=== PATIENT | male | born 1935 | race Caucasian/White ===

== ENCOUNTER → 2017-05-06 | Outpatient (CLI) | payer MEDICARE, OTHER ==
[~2017-05-06] MED LIST: AMIO200T47 PO; APIX5TAB PO; ASPI-715 PO; ASPI-816 PO; ATOR10TA65 PO; ATOR20TA65 PO; AZIT-1 PO; AZIT-18 PO; BENZ200C15 PO; CEPH-13 PO; CLO75 PO; EZET1TAB53 PO; FINA5TAB64 PO; FINA5TAB67 PO; FLU45SYR17 IM; FLU60SYR30 IM ONLY; FURO-45 PO; GLY5 PO; INSU100I28 SQ; INSU100I35 SQ; INSU100I5 SUBQ; INSU100V26 IJ; LEVI SUBQ; LEVO100T95 PO; LEVO50TA86 PO; LEVO75TA73 PO; LIS10 PO; LISI-351 PO; LISI-362 PO; METF-420 PO; METO-231 PO; METO-257 PO; NEED-931 MC; NITR0.4T3 SL; OSE75 PO; PEN1DIS. MC; PRED20TA6 PO; SIMV-54 PO; SITA100T9 PO; SYRI-1525 SQ; TAMS0.4C70 PO; [UNRECOGNIZED DRUG - CODE] MC; [UNRECOGNIZED DRUG - REMARK]
[2017-05-06 11:35] LABS: PLATELET COUNT, AUTOMATED 171 K/uL (150-450)
== END ==
LOC: LAB 11:16
PROVIDERS: ATTEND Nurse Practitioner Family
DX: Z12.5 Encounter for screening for malignant neoplasm of prostate (principal); I12.9 Hypertensive chronic kidney disease with stage 1 through stage 4 chronic kidney disease, or unspecified chronic kidney disease; N18.3 Chronic kidney disease, stage 3 (moderate); E11.9 Type 2 diabetes mellitus without complications; E03.9 Hypothyroidism, unspecified; E78.00 Pure hypercholesterolemia, unspecified
CPT/HCPCS: 36415; 83036; 84443; 85025; G0103; 82040; 82247; 82310; 82374; 82435; 82465; 82565; 82947; 83718; 84075; 84132; 84153; 84155; 84295; 84450; 84460; 84478; 84520

== ENCOUNTER → 2017-08-27 | Outpatient (CLI) | payer MEDICARE, OTHER ==
[~2017-08-27] MED LIST changes: -ASPI-816 PO; +ASPI-870 PO; +METF-421 PO
== END ==
LOC: LAB 10:04
PROVIDERS: ATTEND Nurse Practitioner Family
DX: E03.9 Hypothyroidism, unspecified (principal); I12.9 Hypertensive chronic kidney disease with stage 1 through stage 4 chronic kidney disease, or unspecified chronic kidney disease; N18.3 Chronic kidney disease, stage 3 (moderate); E11.9 Type 2 diabetes mellitus without complications
CPT/HCPCS: 36415; 82040; 82247; 82310; 82374; 82435; 82565; 82947; 83036; 84075; 84132; 84155; 84295; 84443; 84450; 84460; 84520

== ENCOUNTER → 2017-09-30 | Outpatient (CLI) | payer MEDICARE, OTHER ==
[~2017-09-30] MED LIST changes: +METF-411 PO
== END ==
LOC: LAB 09:27
PROVIDERS: ATTEND Nurse Practitioner Family
DX: N18.3 Chronic kidney disease, stage 3 (moderate) (principal)
CPT/HCPCS: 36415; 82310; 82374; 82435; 82565; 82947; 84132; 84295; 84520

== ENCOUNTER → 2017-11-28 | Outpatient (CLI) | payer MEDICARE, OTHER ==
[~2017-11-28] MED LIST changes: -AMIO200T47 PO; +AMIO200T49 PO
[2017-11-28 09:22] LABS: PLATELET COUNT, AUTOMATED 176 K/uL (150-450)
== END ==
LOC: LAB 08:59
PROVIDERS: ATTEND Nurse Practitioner Family
DX: E11.9 Type 2 diabetes mellitus without complications (principal)
CPT/HCPCS: 36415; 82040; 82247; 82310; 82374; 82435; 82565; 82947; 83036; 84075; 84132; 84155; 84295; 84443; 84450; 84460; 84520; 85025

== ENCOUNTER → 2018-03-04 | Outpatient (CLI) | payer MEDICARE, OTHER ==
[~2018-03-04] MED LIST changes: +FLU180SY11 IM; +LOSA50TA74 PO; -METF-411 PO; -METF-421 PO; +METF-450 PO; +METF-452 PO
[2018-03-04 10:58] LABS: PLATELET COUNT, AUTOMATED 174 K/uL (150-450)
[2018-03-04 11:11] LABS: LDL CHOLESTEROL 55 mg/dl
--- NOTE | 2018-03-04 13:16 | RADIOLOGY IMAGING REPORT ---
FACILITY: [facility] PATIENT NAME: Emil Jensen : 1935 MR: [id number] V: [id number] EXAM DATE: ORDERING PHYSICIAN: MELONIE MCKNIGHT TECHNOLOGIST: Location: [facility] [place] Patient: Emil Jensen : 1935 Visit/Account:[id number] Date of Sevice: 03/04/2018 CHEST PA AND LAT INDICATION: chronic cough COMPARISON: 07/19/2015 FINDINGS: Heart size within normal limits. There is no focal infiltrate or lobar consolidation. There is mild pulmonary hyperexpansion. There is no pneumothorax or pleural effusion. IMPRESSION: 1. No acute cardiopulmonary process. Report Dictated By: Lio Dill at 03/04/2018 1:11 PM Report E-Signed By: Lio Dill at 03/04/2018 1:11 PM WSN:[email or web address]
== END ==
LOC: LAB 10:23
PROVIDERS: ATTEND Nurse Practitioner Family
DX: E11.65 Type 2 diabetes mellitus with hyperglycemia (principal); E03.9 Hypothyroidism, unspecified; N18.3 Chronic kidney disease, stage 3 (moderate); R05 Cough
CPT/HCPCS: 36415; 71046; 82040; 82247; 82310; 82374; 82435; 82465; 82565; 82947; 83036; 83718; 84075; 84132; 84155; 84295; 84443; 84450; 84460; 84478; 84520; 85025

== ENCOUNTER 2018-04-23 18:12 | Emergency (ER) | payer MEDICARE, OTHER ==
[~2018-04-23 18:12] MED LIST changes: -LOSA50TA74 PO; +LOSA50TA80 PO
--- NOTE | 2018-04-23 18:16 | ER Report ---
History and Physical Time Seen By MD: 18:16 HPI/ROS CHIEF COMPLAINT: Nosebleeds HISTORY OF PRESENT ILLNESS: 82-year-old male presents with 3 separate nosebleeds over the last 12 hours. The last one just prior to arrival. Patient notes his primary from the left nares. Patient has a history of hypertension. He's also on blood thinners. Although reviewing is listed medications. He is only on a baby aspirin. He previously was on Eliquis for A. fib. Tonight on his presentation. His blood pressure is 188/132. Patient notes no runny nose, rhinitis, sinus infection symptoms. Patient has a packing in his left nose on arrival with controlled bleeding. REVIEW OF SYSTEMS: Respiratory: No cough, no dyspnea. Cardiovascular: No chest pain, no palpitations. Gastrointestinal: No vomiting, no abdominal pain. Musculoskeletal: No back pain. Allergies: Uncoded Allergies: METALS (Adverse Reaction, Unknown, UNKNOWN, 12/22/13) Home Meds Active Scripts Metformin Hcl (METFORMIN HCL) 500 Mg Tablet, 1 TAB PO DAILY, #90 TAB 0 Refills Prov:MELONIE MCKNIGHT APRN-C 04/10/18 Losartan Potassium (LOSARTAN POTASSIUM) 50 Mg Tablet, 1 TAB PO DAILY, #90 TAB 0 Refills Prov:MELONIE MCKNIGHT APRN-C 03/27/18 Finasteride (FINASTERIDE) 5 Mg Tablet, 1 TAB PO DAILY, #90 TAB 0 Refills Prov:MELONIE MCKNIGHT APRNC 03/27/18 Atorvastatin Calcium (ATORVASTATIN CALCIUM) 20 Mg Tablet, 1 TAB PO DAILY, #90 TAB 3 Refills Prov:MELONIE MCKNIGHT APRNC 05/06/17 Metoprolol Tartrate (METOPROLOL TARTRATE) 100 Mg Tablet, 1 TAB PO BID, #180 TAB 3 Refills Prov:MELONIE MCKNIGHT APRNC 05/06/17 Levothyroxine Sodium (LEVOTHYROXINE SODIUM) 75 Mcg Tablet, 1 TAB PO QDAY, #90 TAB 3 Refills Prov:MELONIE MCKNIGHT APRNC 05/06/17 Tamsulosin Hcl (TAMSULOSIN HCL) 0.4 Mg Cap.er.24h, 1 CAP PO QHS, #90 CAP 3 R efills Prov:MELONIE MCKNIGHT APRN FUEL HOUSE ATTENDANT-C 05/06/17 Insulin Detemir 100 UN/ML PEN (Levemir Flextouch) 100 Unit/1 Ml Insuln.pen, 20- 24 UNIT SUBQ Q12H, #15 EACH 3 Refills 24 units every monring and 20 units every evening Prov:MELONIE MCKNIGHT APRN FUEL HOUSE ATTENDANT-C 02/26/17 Insulin Aspart 100 Un/Ml Pen (NOVOLOG FLEXPEN) 100 Unit/1 Ml Insuln.pen, 10 UNITS SQ TIDAC, #1 BOX 8 Refills Prov:MELONIE MCKNIGHT APRNP-C 02/26/17 Pen Needle, Diabetic, Safety (PEN NEEDLE) 1 Each Dis.needle, 1 EACH MC DAILY, #90 5 Refills Prov:MELONIE MCKNIGHT APRN FUEL HOUSE ATTENDANT-C 10/03/16 [place], Insulin Disposable (PEN NEEDLES) 1 Each Dis.needle, 1 EACH MC TID, #1 10 Refills injection of insulin 3X a day Prov:MELANY WYNN MD 09/08/14 Reported Medications Aspirin (Children's Aspirin) 81 Mg Tab.chew, 1 TAB PO DAILY, #100 TAB 4 Refills 05/24/14 Past Medical/Surgical History Past Medical History Neurologic: Reports hx of: other neurologic history (Has resting tremor - evaluated by neurology and diagnosed as essential tremor) Cardiovascular: Reports hx of: atrial fibrillation (after bypass surgery and placed on amiodarone and eliquis for short time.) coronary artery disease (? [place] and had coronary stent in 2010 in [place]. ) hyperlipidemia hypertension Respiratory: Reports hx of: other respiratory history (peak flow 400 in 2011. ) Genitourinary: Reports hx of: benign prostatic hypertro (Tx per Dr. Kitchen since 2001. outlet obst. several yrs ago. ) chronic renal failure (creat of 1.4 in 2009. Hx hyperkalemia. ) Musculoskeletal: Reports hx of: other musculoskeletal hx (Has left lower leg prosthesis for BKA) Endocrine: Reports hx of: diabetes type 2 hypothyroidism Hematology/oncology: Reports hx of: anemia Events: REPORTS HX OF: Other events (abstracted 05/30. Annual in 04/28. ) Past Surgical History Left below the knee amputation Cardiovascular: Reports hx of: CABG surgery (06/2014. [address] Grey in [place]. ) Left below the knee amputation Reviewed Nurses Notes: Yes Old Medical Records Reviewed: Yes Hx Smoking: No Smoking Status: Former Smoker Constitutional Vital Sign - Last 24 Hours 04/23/18 04/23/18 04/23/18 04/23/18 18:12 18:17 18:18 18:26 Temp 97.7 Pulse ??? 83 Resp 16 B/P (MAP) 188/132 (150) 188/132 150/74 (99) Pulse Ox 92 O2 Delivery Room Air 04/23/18 04/23/18 04/23/18 04/23/18 18:27 18:30 18:42 18:45 Pulse 77 93 B/P (MAP) 140/97 (111) 135/64 (87) Pulse Ox 92 04/23/18 04/23/18 04/23/18 04/23/18 19:00 19:15 19:30 19:45 B/P (MAP) 125/79 (94) 107/68 (81) 92/67 (75) 113/58 (76) Physical Exam Vital signs stable, blood pressure grossly elevated, pulse ox normal, afebrile General Appearance: The patient is alert, has no immediate need for airway protection and no current signs of toxicity. No acute distress, skin warm, dry, pink HEENT: Pupils equal and round no injection. TMs normal, nasal passages with fresh clot in Kiesselbach's area in the left nares. There is no bleeding from the right Respiratory: Chest is non tender, lungs are clear to auscultation. Cardiac: Irregular regular rate and rhythm Gastrointestinal: Abdomen is soft and non tender, no masses, bowel sounds normal. Musculoskeletal: Neck: Neck is supple and non tender. No lymphadenopathy Extremities have full range of motion and are non tender. No edema Skin: No rashes or lesions. DIFFERENTIAL DIAGNOSIS: After history and physical exam differential diagnosis was considered forbleeding, epistaxis, excessive and a coagulation, hypertension Medical Decision Making ED Course/Re-evaluation ED Course Patient was admitted to an examination room. H&P was done. The differential diagnoses was considered. Patient's blood pressure was noted to be grossly elevated at 180/132. He was given clonidine 0.1 mg by mouth. His list of medications was reviewed. There is no room to increase his metoprolol or his losartan. Patient's left nares was packed with a cotton ball saturated with Afrin and lidocaine with epinephrine. Silver nitrate cautery was attempted. But it only aggravated of the clot and friability of the Kiesselbach's area. A rapid Rhino had to be placed to control the bleeding. It was infiltrated with lidocaine with epinephrine. He's advised to leave the packing in place for 3 days and then return to the ER on Saturday to have it removed. Decision to Disposition Date: Apr 23, 2018 Decision to Disposition Time: 18:41 Depart Departure Latest Vital Signs Vital Signs Date Time Temp Pulse Resp B/P (MAP) Pulse Ox O2 Delivery O2 Flow Rate FiO2 04/23/18 19:45 113/58 (76) 04/23/18 18:42 93 04/23/18 18:27 92 04/23/18 18:18 97.7 16 Room Air Impression: Primary Impression: Epistaxis Additional Impression: Hypertension Condition: Improved Disposition: HOME OR SELF-CARE Referrals: MELONIE MCKNIGHT APRN FUEL HOUSE ATTENDANT-C (PCP) Patient Instructions: Nosebleed (ED) Additional Instructions: Go to urgent care on Saturday to have your nasal packing removed, you may come to the emergency department if you are unable to be seen at urgent care Problem Qualifiers Additional Impression: Hypertension Hypertension type: essential hypertension Qualified Codes: I10 - Essential (primary) hypertension JUDSON FUENTES DO Apr 23, 2018 18:16
[2018-04-23] MEDS ORDERED: cloNIDine HCL 0.1 MG TAB PO ONE (18:25)
[2018-04-23] MEDS ORDERED: ENT KIT ONE (18:32)
[2018-04-23 19:45] VITALS: BP 113/58
== END 2018-04-23 19:50 | disposition home or self-care (01) ==
LOC: ER 18:32
DX: R04.0 Epistaxis (principal); I10 Essential (primary) hypertension
CPT/HCPCS: 30903; 99283; A9270

== ENCOUNTER 2018-04-26 06:20 | Emergency (ER) | payer MEDICARE, OTHER ==
[2018-04-26 06:30] VITALS: BP 137/91
--- NOTE | 2018-04-26 06:44 | ER Report ---
History and Physical Time Seen By MD: 06:22 Hx. of Stated Complaint: PATIENT STATES THAT AROUND 3 AM HIS NOSE STARTED BLEEDING AGAIN; PATIENT STATES THAT HE TOOK SOME MEDICATION TO STOP THE BLEEDING (FAYE BECERRIL DO) Time Seen By MD: 07:24 (CAITLYN KU DO) HPI/ROS CHIEF COMPLAINT: nosebleed HISTORY OF PRESENT ILLNESS: Pt was seen here on 04/23/2018 for a nose bleed after having 3 separate nosebleeds at home. Dr. Ibarra attempted to cauterize the left nares at sight of anterior bleeding but was unsuccessful. Pts nose was packed with rhino rocket and bleeding stopped. PT was to report to urgent care today to have the packing removed. Pt states that at 3am he started with bleeding from his left nares again. PT removed the rhinorocket himself and held pressure. PT took his blood pressure medication lopressor 100mg to help reduce his pressure and a possible cause of his bleeding. When bleeding did not stop immediately he took a second pill for a total of 200mg. Pt bleeding finallly stopped but he came her to the emergency room to have his nose checked. no active bleeding at this time. Pt is on baby asa. REVIEW OF SYSTEMS: Constitutional: No fever, no chills. Eyes: No discharge. ENT: No sore throat. + nose bleed Cardiovascular: No chest pain, no palpitations. Respiratory: No cough, no shortness of breath. Gastrointestinal: No abdominal pain, no vomiting. Genitourinary: No hematuria. Musculoskeletal: No back pain. Skin: No rashes. Neurological: No headache. (FAYE BECERRIL DO) HPI/ROS Please see 's note (CAITLYN KU DO) Allergies: Uncoded Allergies: METALS (Adverse Reaction, Unknown, UNKNOWN, 12/22/13) Home Meds Active Scripts Metformin Hcl (METFORMIN HCL) 500 Mg Tablet, 1 TAB PO DAILY, #90 TAB 0 Refills Prov:MELONIE MCKNIGHT APRN-C 04/10/18 Losartan Potassium (LOSARTAN POTASSIUM) 50 Mg Tablet, 1 TAB PO DAILY, #90 TAB 0 Refills Prov:MELONIE MCKNIGHT APRNP-C 03/27/18 Finasteride (FINASTERIDE) 5 Mg Tablet, 1 TAB PO DAILY, #90 TAB 0 Refills Prov:MELONIE MCKNIGHT DERIC ALFALFA DEHYDRATOR OPERATOR-C 03/27/18 Atorvastatin Calcium (ATORVASTATIN CALCIUM) 20 Mg Tablet, 1 TAB PO DAILY, #90 TAB 3 Refills Prov:TERESA MCKNIGHTWILLI ARAYAP-C 05/06/17 Metoprolol Tartrate (METOPROLOL TARTRATE) 100 Mg Tablet, 1 TAB PO BID, #180 TAB 3 Refills Prov:TERESA MCKNIGHTWILLI ARAYAP-C 05/06/17 Levothyroxine Sodium (LEVOTHYROXINE SODIUM) 75 Mcg Tablet, 1 TAB PO QDAY, #90 TAB 3 Refills Prov:JUAN LUISMELONIE ARAYAP-C 05/06/17 Tamsulosin Hcl (TAMSULOSIN HCL) 0.4 Mg Cap.er.24h, 1 CAP PO QHS, #90 CAP 3 Refills Prov:MELONIE MCKNIGHT APRNP-C 05/06/17 Insulin Detemir 100 UN/ML PEN (Levemir Flextouch) 100 Unit/1 Ml Insuln.pen, 20- 24 UNIT SUBQ Q12H, #15 EACH 3 Refills 24 units every monring and 20 units every evening Prov:MELONIE MCKNIGHT APRN-C 02/26/17 Insulin Aspart 100 Un/Ml Pen (NOVOLOG FLEXPEN) 100 Unit/1 Ml Insuln.pen, 10 UNITS SQ TIDAC, #1 BOX 8 Refills Prov:SHMUELGONZALOMELONIEWILLI ARAYAP-C 02/26/17 Pen Needle, Diabetic, Safety (PEN NEEDLE) 1 Each Dis.needle, 1 EACH MC DAILY, #90 5 Refills Prov:TABITHAMELONIE TAVERA APRN ALFALFA DEHYDRATOR OPERATOR-C 10/03/16 [place], Insulin Disposable (PEN NEEDLES) 1 Each Dis.needle, 1 EACH MC TID, #1 10 Refills injection of insulin 3X a day Prov:MELANY WYNN MD 09/08/14 Reported Medications Aspirin (Children's Aspirin) 81 Mg Tab.chew, 1 TAB PO DAILY, #100 TAB 4 Refills 05/24/14 Past Medical/Surgical History Pmhx: hyperlipid, htn, resting tremor, afib, Cad, Renal failure, BPH, hypothyroid Pshx: CABG (LAURORA,FAYE V DO) Reviewed Nurses Notes: Yes Old Medical Records Reviewed: Yes (FAYE BECERRIL DO) Hx Smoking: No Smoking Status: Former Smoker Hx Alcohol Use: No (FAYE BECERRIL DO) Constitutional Vital Sign - Last 24 Hours 04/26/18 04/26/18 04/26/18 04/26/18 06:24 06:24 06:30 06:50 Temp 97.5 Pulse 60 52 Resp 16 B/P (MAP) 106/91 (96) 106/91 137/91 (106) Pulse Ox 93 89 O2 Delivery Room Air Room Air (CAITLYN KU DO) Physical Exam General Appearance: The patient is alert, has no immediate need for airway protection and no signs of toxicity. Eyes: Pupils equal and round no pallor or injection, EOMI ENT: no pharyngeal erythema or exudates, Mucous membranes are moist, TM are nl b/l Respiratory: There are no retractions, lungs are clear to auscultation. Cardiovascular: Regular rate and rhythm. pulses are equal and symmetrical Neurological: Cranial nerves II-XII grossly intact, + resting tremor Skin: Warm and dry, no rashes. Extremities are nontender, nonswollen and have full range of motion. DIFFERENTIAL DIAGNOSIS: After history and physical exam differential diagnosis was considered for nose bleed, coagulopathy (FAYE BECERRIL DO) Physical Exam Please see Dr. Becerril's note (CAITLYN KU DO) Medical Decision Making ED Course/Re-evaluation ED Course Pt on arrival had a try tissue in his left nares with no active bleeding. Tissue was moistened with NSS and removed. No bleeding was noted. PT does have a larger blood vessel anterior septal wall which may have been the area of bleeding however no bleeding at this time. I discussed with the pt possible cauterizing of that blood vessel however that could lead to repeat bleeding and then packing. PT elected to be monitored and if no bleeding reoccurs then will d/c without intervention. However if bleeding restarts will attempt cauterization and/or packing. PT has not seen ENT in past, will give him a referaral # 04/26/2018 6:52:01 am S[address] out to Dr. Ku Decision to Disposition Date: Apr 26, 2018 Decision to Disposition Time: 07:04 (FAYE EBCERRIL DO) ED Course I assumed patient care from Dr. Becerril at 0700. Patient remained hemodynamicall y stable, in no acute distress with no recurrent bleeding. Blood pressure improved to 126/76. Close PCP follow-up recommended. Patient was sent home with a rapid Rhino for self administration for refractory bleeding. Patient was stable at time of discharge. Decision to Disposition Date: Apr 26, 2018 Decision to Disposition Time: 07:32 (CAITLYN KU DO) Depart Departure Latest Vital Signs Vital Signs Date Time Temp Pulse Resp B/P (MAP) Pulse Ox O2 Delivery O2 Flow Rate FiO2 04/26/18 06:50 52 89 Room Air 04/26/18 06:30 137/91 (106) 04/26/18 06:24 97.5 16 (CAITLYN KU DO) Impression: Primary Impression: Anterior epistaxis Condition: Improved Disposition: HOME OR SELF-CARE Referrals: MELONIE MCKNIGHT APRN ALFALFA DEHYDRATOR OPERATOR-C (PCP) MELANY MARTIN JR, MD ENT (ear noses and throat) specialist Patient Instructions: Nosebleed (ED) Additional Instructions: Please call ear nose and throat on Saturday for outpatient evaluation of your nose bleeds. Please return immediately if you develop recurrent nosebleeds, applied direct pressure constantly for at a minimum 15 minutes. If bleeding persists, please administer the rapid Rhino device. Please return immediately for significant bleeding or if you develop lightheadedness, loss of consciousness, weakness. Please drink plenty of water in order to maintain hydration. FAYE BECERRIL DO Apr 26, 2018 06:44 CAITLYN KU DO Apr 26, 2018 07:28
== END 2018-04-26 07:53 | disposition home or self-care (01) ==
LOC: ER 06:37
DX: R04.0 Epistaxis (principal)
CPT/HCPCS: 99282

== ENCOUNTER → 2018-04-29 | Outpatient (CLI) | payer MEDICARE, OTHER ==
[2018-04-29 14:14] LABS: PLATELET COUNT, AUTOMATED 149 K/uL (150-450)
[2018-04-29 15:29] LABS: INR 1.02
== END ==
LOC: LAB 13:48
PROVIDERS: ATTEND Nurse Practitioner Family
DX: R04.0 Epistaxis (principal)
CPT/HCPCS: 36415; 85025; 85610; 85730

== ENCOUNTER → 2018-06-05 | Outpatient (CLI) | payer MEDICARE, OTHER | LOC: LAB 09:45 | PROVIDERS: ATTEND Nurse Practitioner Family | DX: E11.9 Type 2 diabetes mellitus without complications (principal); E03.9 Hypothyroidism, unspecified; E78.00 Pure hypercholesterolemia, unspecified; I10 Essential (primary) hypertension; N18.3 Chronic kidney disease, stage 3 (moderate); Z12.5 Encounter for screening for malignant neoplasm of prostate | CPT/HCPCS: 36415; 83036; 84443; G0103; 82040; 82247; 82310; 82374; 82435; 82465; 82565; 82947; 83718; 84075; 84132; 84153; 84155; 84295; 84450; 84460; 84478; 84520 ==

== ENCOUNTER 2018-07-07 11:15 | Outpatient (RCR) | payer MEDICARE, OTHER ==
--- NOTE | 2018-06-09 17:54 | PT INITIAL EVALUATION ---
MEDICAL DIAGNOSIS: R26.89 Balance Problems TREATMENT DIAGNOSIS: Same DATE OF ONSET: 05/25/18 SUBJECTIVE: Emil Jensen (Archie) presents to PT for falls, both at home and in the community. He states he sometimes catches his foot, two weeks ago slipped on ice leaving congregational and fell. REHAB PROBLEM LIST: Decreased Strength Impaired Transfers Decreased Endurance Decreased Balance Decreased Mobility Decreased Gait PREVIOUS MEDICAL HISTORY: L BKA as a small child, NIDDM, B hand tremor, cardiac stents. OCCUPATION: Retired, lives with his in a two story home, sedentary. OBJECTIVE: Posture: Abducted L LE, WB more through R LE, mild trunk flexion. Strength: Hip flexors 4/5 B, L quad 4-/5, R 4/5, hamstrings B 4/5, R ankle DF 5- /5, PF 3-/5. Mobility: Sit/stand with legs against mat table 1-3 attempts. Gait: Independent gait with shorter L step length, heels together, stopping infrequently, feet don't pass each other or clear the floor. Turns slowly but safely. LOB with trying to tap a 6" step with one foot, L and R. Balance: Double limb support only. [place] Balance Assessment 38/56, a 32% impairment. Tirso doesn't attempt L single limb stance due to his prosthesis. Tandem stand with immediate LOB. Other Objective Findings: O2 on room air 92-96% with balance exercise. ASSESSMENT: Emil Jensen (Archie) presents with fall risk, weakness, poor balance, history of falls. He did well today with basic balance training. Short Term Goals One month: Tirso turns with balance control, WS R. Two months: Tirso denies falls at home. Three months: Moderate fall risk ([place]), demonstrates corrective balance reactions on firm surfaces. Patient's Goals Stop falling. PLAN: Patient to be seen for Strengthening/condition, Stretching, Neuromuscular Re-ed, Gait Trg/Balance Trg, Home Exercise Program 2x/Week for 3 months Thank you for this referral. If you have any questions, comments, or concerns about this report or plan, please contact me at . [facility]
--- NOTE | 2018-07-21 11:46 | PT PLAN OF CARE ---
Physician: QUIANA SawantP-C Patient is being seen: 2x/week Therapist: Irene Kelley, [place] Medical Diagnosis: R26.89 Balance Problems Treatment Diagnosis: Same Date of Onset: 05/25/18 Date of Initial Evaluation: 06/09/18 Date patient was last seen: 07/14/18 Number of treatments: 7 Number of cancellations/No shows: 3 INTERVENTIONS:, Strengthening/condition, Stretching, Neuromuscular Re-ed, Gait Trg/Balance Trg GOALS: One month: Tirso turns with balance control, WS R (both met). Two months: Tirso denies falls at home (met). Three months: Moderate fall risk ([place]) (unknown - self-DC), demonstrates corrective balance reactions on firm surfaces (not met). PATIENT'S GOAL: Stop falling (progressed). Patient Compliance: Good Prognosis: Excellent Reasons for discontinuing therapy: S: Tirso's called to let us know he is stopping PT as he has developed a wound on his L BKA stump. Tirso no-showed his last visit. he reported he hasn't fallen since starting PT. Posture: Abducted L LE, WB more through R LE, upright trunk. Gait/Balance: Tirso had improved gait with turning with control, L and R, slowly. He was able to do single leg stand exercises in the parallel bars, holding the bars. [place] Balance Assessment wasn't done on his last attended visit. Strength: NT. Mobility: Sit/stand without UE use, 23" height, no UE use. A/P: Emil"Tirso"Camila was improving gait and balance, but has stopped due to wound. I'll DC PT with request to Tirso to schedule a visit with you. Thank you. KAREN
== END 2018-07-07 18:00 | disposition home or self-care (01) ==
LOC: PT 11:15
PROVIDERS: ATTEND Nurse Practitioner Family
DX: R26.89 Other abnormalities of gait and mobility (principal); R29.6 Repeated falls; E11.9 Type 2 diabetes mellitus without complications; R25.1 Tremor, unspecified; Z95.5 Presence of coronary angioplasty implant and graft
CPT/HCPCS: 97162

== ENCOUNTER → 2018-07-25 | Outpatient (CLI) | payer MEDICARE, OTHER | LOC: LAB 12:06 | PROVIDERS: ATTEND Nurse Practitioner Family | DX: R31.9 Hematuria, unspecified (principal); R35.0 Frequency of micturition | CPT/HCPCS: 81001 ==

== ENCOUNTER → 2018-09-04 | Outpatient (CLI) | payer MEDICARE, OTHER | LOC: LAB 11:10 | PROVIDERS: ATTEND Nurse Practitioner Family | DX: E11.9 Type 2 diabetes mellitus without complications (principal) | CPT/HCPCS: 36415; 82040; 82247; 82310; 82374; 82435; 82565; 82947; 83036; 84075; 84132; 84155; 84295; 84450; 84460; 84520 ==

== ENCOUNTER → 2018-09-29 | Outpatient (CLI) | payer MEDICARE, OTHER ==
[~2018-09-29] MED LIST changes: +LOSA100T75 PO; +TAMS0.4C25 PO
--- NOTE | 2018-09-29 17:30 | RADIOLOGY IMAGING REPORT ---
FACILITY: [facility] [place] PATIENT NAME: Emil Jensen : 1935 MR: [id number] V: [id number] EXAM DATE: ORDERING PHYSICIAN: MELONIE MCKNIGHT TECHNOLOGIST: Location: [facility] Patient: Emil Jensen : 1935 Visit/Account:[id number] Date of Sevice: 09/29/2018 Left wrist, 3 views. HISTORY: Injury. COMPARISON: None. Mild joint space narrowing is present in the scaphoid multangular joint. A slight cortical irregulari ty is present along the distal tip of the ulnar styloid suspicious for a nondisplaced avulsion fragme nt. Arterial calcifications are scattered in the extremity. The bones, joints, and soft tissues are o therwise unremarkable. Carpal alignment is unremarkable. IMPRESSION: Nondisplaced avulsion fracture of the ulnar styloid tip. Otherwise negative for acute bony abnormality. Report Dictated By: Armand Sterling MD at 09/29/2018 5:21 PM Report E-Signed By: Armand Sterling MD at 09/29/2018 5:25 PM WSN:[id number]
== END ==
LOC: RAD 16:13
PROVIDERS: ATTEND Nurse Practitioner Family
DX: S52.615A Nondisplaced fracture of left ulna styloid process, initial encounter for closed fracture (principal)

== ENCOUNTER → 2018-11-14 | Outpatient (CLI) | payer MEDICARE, OTHER | LOC: LAB 09:52 | PROVIDERS: ATTEND Nurse Practitioner Family | DX: E11.9 Type 2 diabetes mellitus without complications (principal); I10 Essential (primary) hypertension | CPT/HCPCS: 36415; 82310; 82374; 82435; 82565; 82947; 83036; 84132; 84295; 84520 ==